=== PATIENT | female | born 1945 | race Caucasian/White ===

== ENCOUNTER → 2017-07-12 | Outpatient (CLI) | payer MEDICARE, BC | LOC: COL.LAB 14:10 | DX: Z72.9 Problem related to lifestyle, unspecified (principal) ==

== ENCOUNTER 2017-07-29 16:51 | Emergency (ER) | payer MEDICARE, BC ==
[~2017-07-29] VITALS: Ht 177.8 cm; Wt 90.9 kg
[2017-07-29 16:53] VITALS: TEMP 98.2
[2017-07-29 20:28] VITALS: BP 137/82; PULSE 72
[2017-07-29] MEDS ORDERED: CEPHALEXIN500 M1 PO (20:32)
[2017-07-29] MEDS ORDERED: NORCO 325 MG-101 TAB PO (21:13)
[2017-07-29] MEDS ORDERED: NEURONTIN400 MG/CAP PO (21:15)
[2017-07-29] MEDS ORDERED: PREVACID 30MG30 M1 PO (21:16)
[2017-07-29] MEDS ORDERED: CELEBREX 200MG200 MG PO (21:16)
[2017-07-29] MEDS ORDERED: LOTENSIN20 MG PO (21:17)
[2017-07-29] MEDS ORDERED: WELLBUTRIN XL300 M1 PO (21:17)
[2017-07-29] MEDS ORDERED: HCTZ 25MG TAB25 MG PO (21:17)
[2017-07-29] MEDS ORDERED: GLUCOPHAGE500 MG/TAB PO (21:18)
[2017-07-29] MEDS ORDERED: VITAMIND3 5000 PO (21:18)
[2017-07-29] MEDS ORDERED: TURMERIC500 MG PO (21:19)
[2017-07-29] MEDS ORDERED: GINGER ROOT EX250 MG PO (21:19)
== END 2017-07-29 21:14 | disposition home or self-care (01) ==
LOC: COL.ER 16:51
DX: S52.121A Displaced fracture of head of right radius, initial encounter for closed fracture (principal); S01.511A Laceration without foreign body of lip, initial encounter; S80.02XA Contusion of left knee, initial encounter; E11.9 Type 2 diabetes mellitus without complications; I10 Essential (primary) hypertension; F32.9 Major depressive disorder, single episode, unspecified; G89.29 Other chronic pain; Z79.84 Long term (current) use of oral hypoglycemic drugs; W01.198A Fall on same level from slipping, tripping and stumbling with subsequent striking against other object, initial encounter; Y92.480 Sidewalk as the place of occurrence of the external cause
CPT/HCPCS: J1170

== ENCOUNTER 2018-05-18 12:30 | Outpatient (RCR) | payer MEDICARE, BC ==
[~2018-05-18 12:30] MED LIST: CELEBREX 200MG200 MG PO; CEPHALEXIN500 M1 PO; GINGER ROOT EX250 MG PO; GLUCOPHAGE500 MG/TAB PO; HCTZ 25MG TAB25 MG PO; LOTENSIN20 MG PO; NEURONTIN400 MG/CAP PO; NORCO 325 MG-101 TAB PO; PREVACID 30MG30 M1 PO; TURMERIC500 MG PO; VITAMIND3 5000 PO; WELLBUTRIN XL300 M1 PO
== END 2018-05-23 14:00 | disposition home or self-care (01) ==
LOC: MKS.ESL.PT 12:30
DX: H81.11 Benign paroxysmal vertigo, right ear (principal); Z91.81 History of falling
CPT/HCPCS: G8979-GP; G8980-GP

== ENCOUNTER → 2018-08-27 | Outpatient (CLI) | payer MEDICARE, BC | LOC: MC.RAD 10:37 | DX: Z12.31 Encounter for screening mammogram for malignant neoplasm of breast (principal); Z98.890 Other specified postprocedural states ==

== ENCOUNTER → 2019-01-17 | Outpatient (CLI) | payer MEDICARE, BC | LOC: COL.RAD 08:15 | DX: K76.0 Fatty (change of) liver, not elsewhere classified (principal) ==

== ENCOUNTER 2019-07-25 15:00 | Outpatient (RCR) | payer MEDICARE, BC ==
[~2019-07-25 15:00] MED LIST changes: +GLUCOPHAGE1000 MG PO; +PROZAC 20MG20 MG PO
== END 2019-07-28 | disposition still patient (30) ==
LOC: MKS.ESL.PT
DX: H81.10 Benign paroxysmal vertigo, unspecified ear (principal)

== ENCOUNTER 2019-08-08 15:00 | Outpatient (RCR) | payer MEDICARE, BC | END 2019-09-05 14:33 | disposition home or self-care (01) | LOC: MKS.ESL.PT 15:00 | DX: H81.10 Benign paroxysmal vertigo, unspecified ear (principal) ==

== ENCOUNTER → 2019-10-04 | Outpatient (CLI) | payer MEDICARE, BC | LOC: MC.RAD 11:35 | DX: Z12.31 Encounter for screening mammogram for malignant neoplasm of breast (principal) ==

== ENCOUNTER → 2020-10-27 | Outpatient (CLI) | payer MEDICARE, BC ==
[~2020-10-27] MED LIST changes: +PERCOCET 325 MG1 TA2 PO
== END ==
LOC: MC.RAD 11:30
DX: Z12.31 Encounter for screening mammogram for malignant neoplasm of breast (principal); N64.89 Other specified disorders of breast

== ENCOUNTER → 2020-11-06 | Outpatient (CLI) | payer MEDICARE, BC | LOC: MC.RAD 13:00 | DX: N64.89 Other specified disorders of breast (principal) ==

== ENCOUNTER → 2021-01-05 | Outpatient (CLI) | payer MEDICARE, BC | LOC: COL.RAD | DX: K76.0 Fatty (change of) liver, not elsewhere classified (principal); R74.8 Abnormal levels of other serum enzymes ==

== ENCOUNTER → 2022-03-18 | Outpatient (CLI) | payer MEDICARE, BC | LOC: MC.RAD 11:00 | DX: Z12.31 Encounter for screening mammogram for malignant neoplasm of breast (principal) ==

== ENCOUNTER → 2024-08-01 | Outpatient (CLI) | payer MEDICARE | LOC: MC.RAD 10:37 | DX: Z12.31 Encounter for screening mammogram for malignant neoplasm of breast (principal) ==